=== PATIENT | female | born 1975 | race Hispanic/Latino ===

== ENCOUNTER 2017-02-11 17:43 | Emergency (ER) | payer OTHER | END 2017-02-11 20:36 | disposition home or self-care (01) | LOC: ERS 17:43 | DX: M54.5 Low back pain (principal); E66.9 Obesity, unspecified; H20.9 Unspecified iridocyclitis; H20.10 Chronic iridocyclitis, unspecified eye; F32.9 Major depressive disorder, single episode, unspecified; F41.9 Anxiety disorder, unspecified; Z87.442 Personal history of urinary calculi | CPT/HCPCS: 99283 ==

== ENCOUNTER 2017-04-11 14:18 | Emergency (ER) | payer OTHER ==
[2017-04-11 15:17] LABS: #Basophils 0.1 thou/uL (0.0-0.2); #Eosinphils 0.1 thou/uL (0.0-0.7); #Lymphocytes 2.1 thou/uL (1.20-3.40); #Monocytes 0.6 thou/uL (0.11-0.59); #Neutrophils 6.6 thou/uL (1.40-6.50); %Basophils 0.6 % (0.0-1.0); %Eosinophils 0.9 % (0.0-10.0); %Lymphocytes 21.9 % (21.0-51.0); %Monocytes 6.1 % (0.0-10.0); %Neutrophils 70.4 % (42.0-75.0); Hemoglobin 13.8 g/dL (12.0-16.0); Mean Corpuscular HGB CONC 33.6 g/dL (32.0-36.0); Mean Corpuscular Hemoglobin 32.4 pg (27.0-31.0); Mean Corpuscular Volume 96.5 fl (81.0-99.0); Mean Platelet Volume 6.5 fL (7.4-10.4); Platelet Count 362 thou/uL (130-400); RBC Distribution Width 12.4 % (11.5-14.5); Red Blood Cell (RBC) Count 4.26 mill/uL (4.20-5.40); White Blood Cell (WBC) Count 9.4 thou/uL (4.8-10.8)
[2017-04-11 15:33] LABS: ALT (SGPT) 17 U/L (8-55); AST (SGOT) 14 U/L (5-34); Alkaline Phosphatase 106 U/L (40-150); Anion Gap 11 mmol/L (10-20); BUN (Urea Nitrogen) 9 mg/dL (7.0-18.7); Bilirubin, Total 0.4 mg/dL (0.2-1.2); CK (CPK) 60 U/L (29-168); Calc. Creatinine Clearance 0 mL/min (70-130); Carbon Dioxide 23 mmol/L (22-29); Chloride 107 mmol/L (98-107); Estimated GFR-MDRD Greater than 90; Glucose 109 mg/dL (70-105); Potassium 3.7 mmol/L (3.5-5.1); Sodium 137 mmol/L (136-145)
[2017-04-11 15:37] LABS: CKMB 0.6 ng/mL (0-6.6); Troponin I Less than 0.010 ng/mL (< 0.028)
--- NOTE | 2017-04-11 16:17 | RAD ---
PORTABLE AP CHEST X-RAY 04/11/17 HISTORY: Chest pain and suprapubic pain. Chest wall pain. COMPARISON: 07/01/15. FINDINGS: The cardiac silhouette and pulmonary vasculature are within normal limits. The lungs remain clear. Th ere has been no interval change from the prior study. IMPRESSION: No acute cardiopulmonary process. POS: [facility]
[2017-04-11 17:28] LABS: Bilirubin Negative (Negative); Blood, Urine Negative (Negative); Clarity CLEAR (Clear); Glucose, Urine (Dipstick) Negative (Negative); Leukocyte Negative (Negative); Nitrite Negative (Negative); Protein, Urine (Dipstick) Negative (Neg-Trace); Specific Gravity, Urine 1.014 (1.002-1.036); Urobilinogen 0.2 mg/dL (0.2-1.0); pH, Urine 7.5 (5.0-9.0)
--- NOTE | 2017-04-11 18:56 | CT ---
CT OF ABDOMEN AND PELVIS PERFORMED WITHOUT CONTRAST ENHANCEMENT: 04/11/17 HISTORY: Low abdominal pain. Nausea, vomiting and diarrhea. History of kidney stones. COMPARISON: A 08/19 and 11/17/15 exams. The lung bases show some persistent minimal tree-in-bud nodularity in the left lower lobes stable. The liver, spleen pancreas regions appear unremarkable. The gallbladder has been removed. The right and left adrenal glands are normal in appearance. The right and left kidneys are normal in size. No definitive renal calculi are seen. No obstruction of ureteral calculi. No significant periao rtic or mesenteric adenopathy. CT OF PELVIS PERFORMED WITHOUT CONTRAST ENHANCEMENT: No evidence of adenopathy, mass or free fluid. Appendix region appears unremarkable. IMPRESSION: 1. Postop cholecystectomy change. 2. No acute abnormalities of the abdomen or pelvis. POS: [facility]
[2017-04-14 21:52] LABS: Chlamydia by PCR Not Detected (NotDetected); GC by PCR Not Detected (NotDetected)
--- NOTE | 2017-05-09 17:46 | EKG ---
Test Reason : CHEST PAIN Blood Pressure : / mmHG Vent. Rate : 102 BPM Atrial Rate : 102 BPM P-R Int : 150 ms QRS Dur : 064 ms QT Int : 342 ms P-R-T Axes : 030 -01 012 degrees QTc Int : 445 ms Sinus tachycardia No STEMI Otherwise normal ECG Confirmed by JES BYRNES, MAYDA ([id number]), visual effects editor LORENA NASCIMENTO ([id number] on 05/09/2017 5:46:02 PM Referred By: Confirmed By:MAYDA ANDRE MD
== END 2017-04-11 20:49 | disposition home or self-care (01) ==
LOC: ERS 14:18
DX: B37.3 Candidiasis of vulva and vagina (principal); E66.9 Obesity, unspecified; F41.9 Anxiety disorder, unspecified; F32.9 Major depressive disorder, single episode, unspecified
CPT/HCPCS: 36415; 71045; 74176; 80053; 81003; 82550; 82553; 83690; 84484; 85025; 87480; 87491; 87510; 87591; 87660; 93005

== ENCOUNTER 2017-05-21 16:19 | Outpatient (CLI) | payer OTHER | END 2017-05-21 16:20 | disposition home or self-care (01) | LOC: BICMAMMO 16:19 | PROVIDERS: ATTEND Obstetrics & Gynecology | DX: Z12.31 Encounter for screening mammogram for malignant neoplasm of breast (principal) | CPT/HCPCS: 77063; 77067 ==

== ENCOUNTER 2019-01-26 16:31 | Emergency (ER) | payer OTHER ==
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
== END 2019-01-26 17:23 | disposition home or self-care (01) ==
LOC: ERS 16:31
DX: S50.01XA Contusion of right elbow, initial encounter (principal); F41.9 Anxiety disorder, unspecified; F32.9 Major depressive disorder, single episode, unspecified; Z79.899 Other long term (current) drug therapy; V89.2XXA Person injured in unspecified motor-vehicle accident, traffic, initial encounter

== ENCOUNTER 2019-04-10 18:17 | Emergency (ER) | payer OTHER ==
[2019-04-10] MEDS ORDERED: Ketorolac Tromethamine 30 MG/ML VIAL ONE (18:47)
== END 2019-04-10 18:58 | disposition home or self-care (01) ==
LOC: ERS 18:17
DX: S39.012A Strain of muscle, fascia and tendon of lower back, initial encounter (principal); S80.12XA Contusion of left lower leg, initial encounter; S50.811A Abrasion of right forearm, initial encounter; S60.811A Abrasion of right wrist, initial encounter; E66.9 Obesity, unspecified; F41.9 Anxiety disorder, unspecified; F32.9 Major depressive disorder, single episode, unspecified; V43.62XA Car passenger injured in collision with other type car in traffic accident, initial encounter
CPT/HCPCS: 96372; 99283; J1885

== ENCOUNTER 2019-09-22 20:51 | Emergency (ER) | payer OTHER ==
[2019-09-22 21:38] LABS: Bilirubin 1+ (Negative); Blood, Urine Negative (Negative); Clarity Clear (Clear); Glucose, Urine (Dipstick) Normal (Negative); Ketone, Urine Negative (Negative); Leukocyte Negative Leu/uL (Negative); Nitrite 1+ (Negative); Protein, Urine (Dipstick) Negative (Neg-Trace); RBC/HPF 0-3 HPF (0-3); Specific Gravity, Urine 1.015 (1.002-1.036); WBC/HPF 0-3 HPF (0-3); pH, Urine 6.5 (5.0-9.0)
[2019-09-22 21:46] LABS: Bacteria/HPF 1+ HPF (None Seen)
[2019-09-22 21:50] LABS: #Eosinphils 0.1 thou/uL (0.0-0.7); #Lymphocytes 2.5 thou/uL (1.20-3.40); #Monocytes 0.7 thou/uL (0.11-0.59); #Neutrophils 8.9 thou/uL (1.40-6.50); %Basophils 0.4 % (0.0-1.0); %Eosinophils 1.2 % (0.0-10.0); %Lymphocytes 20.1 % (21.0-51.0); %Monocytes 5.5 % (0.0-10.0); %Neutrophils 72.8 % (42.0-75.0); Hemoglobin 12.6 g/dL (12.0-16.0); Mean Corpuscular HGB CONC 33.2 g/dL (32.0-36.0); Mean Corpuscular Hemoglobin 32.2 pg (27.0-31.0); Mean Corpuscular Volume 97.1 fL (78.0-98.0); Mean Platelet Volume 6.9 fL (7.4-10.4); Platelet Count 366 thou/uL (130-400); RBC Distribution Width 12.4 % (11.5-14.5); White Blood Cell (WBC) Count 12.3 thou/uL (4.8-10.8)
[2019-09-22 22:11] LABS: ALT (SGPT) 13 U/L (8-55); AST (SGOT) 13 U/L (5-34); Albumin 3.8 g/dL (3.5-5.0); Alkaline Phosphatase 114 U/L (40-110); Anion Gap 14 mmol/L (10-20); BUN (Urea Nitrogen) 14 mg/dL (7.0-18.7); Bilirubin, Total 0.2 mg/dL (0.2-1.2); Calc. Creatinine Clearance 0 mL/min (70-130); Calcium 8.7 mg/dL (7.8-10.44); Carbon Dioxide 23 mmol/L (22-29); Chloride 104 mmol/L (98-107); Estimated GFR-MDRD 62; Globulin 3.8 g/dL (2.4-3.5); Glucose 153 mg/dL (70-105); Potassium 3.8 mmol/L (3.5-5.1); Protein, Total 7.6 g/dL (6.0-8.3); Sodium 137 mmol/L (136-145)
== END 2019-09-22 23:56 | disposition home or self-care (01) ==
LOC: ERS 20:51
DX: N39.0 Urinary tract infection, site not specified (principal); R31.9 Hematuria, unspecified; I10 Essential (primary) hypertension; F41.9 Anxiety disorder, unspecified; F32.9 Major depressive disorder, single episode, unspecified; Z79.899 Other long term (current) drug therapy
CPT/HCPCS: 36415; 80053; 81003; 81015; 85025; 87086; 99283

== ENCOUNTER 2020-07-25 21:03 | Emergency (ER) | payer OTHER ==
[2020-07-25] MEDS ORDERED: Metoclopramide 10 MG/10 ML UDCUP ONE (23:07)
[2020-07-25] MEDS ORDERED: Ketorolac Tromethamine 30 MG/ML VIAL ONE (23:07)
[2020-07-25] MEDS ORDERED: diphenhydrAMINE 50 MG/ML VIAL ONE (23:07)
[2020-07-25] MEDS ORDERED: Metoclopramide HCl 10 MG/2 ML VIAL ONE (23:08)
== END 2020-07-26 01:37 | disposition home or self-care (01) ==
LOC: ERS 21:03
DX: R51.9 Headache, unspecified (principal); E66.9 Obesity, unspecified
CPT/HCPCS: 93005; 96374; 96375; J1200; J1885; J2765

== ENCOUNTER 2020-08-23 08:00 | Outpatient (CLI) | payer OTHER | END 2020-08-23 08:01 | disposition home or self-care (01) | LOC: BICRAD 08:00 | PROVIDERS: ATTEND Family Medicine | DX: M54.5 Low back pain (principal); R06.00 Dyspnea, unspecified | CPT/HCPCS: 71046; 72100 ==